=== PATIENT | male | born 1990 | race Hispanic/Latino ===

== ENCOUNTER 2024-02-29 00:53 | Inpatient (IN) | payer SELFPAY ==
[~2024-02-29] VITALS: Ht 170.2 cm; Wt 72.6 kg
[2024-02-29 01:19] LABS: BASOPHILS # (AUTO) 0.09 K/uL (0.00-0.20); BASOPHILS % (AUTO) 1.6 % (0.0-5.0); EOSINOPHILS # (AUTO) 0.49 K/uL (0.00-0.70); EOSINOPHILS % (AUTO) 8.8 % (0.0-8.0); HEMATOCRIT 37.9 % (42-54); IMMATURE GRANULOCYTE ABSOLUTE 0.02 K/uL (0-1); LYMPHOCYTES # (AUTO) 0.5 K/uL (1.0-4.8); LYMPHOCYTES % (AUTO) 8.1 % (21.0-51.0); MEAN CORPUSCULAR VOLUME 90.9 fL (79-99); MONOCYTES # (AUTO) 0.5 K/uL (0.1-1.0); MONOCYTES % (AUTO) 9.1 % (3.0-13.0); PLATELET COUNT (AUTO) 210 K/uL (130-400); RED BLOOD CELL COUNT(AUTO) 4.17 MIL/uL (4.50-6.20); RED CELL DISTRIBUTION WIDTH 16.2 % (11.0-15.5); WHITE BLOOD COUNT (AUTO) 5.6 K/uL (4.8-10.8)
[2024-02-29] MEDS: morPHINE 2 MG SYG IVP ONE (01:26)
[2024-02-29] MEDS: ondanSETRON 4MG INJ IVP ONE (01:26)
[2024-02-29 01:32] LABS: CREATININE 0.7 mg/dL (0.5-1.3); POTASSIUM 4.3 mmol/L (3.5-5.1)
[2024-02-29 01:36] LABS: ALBUMIN 2.7 g/dL (3.5-5.0); BILIRUBIN,TOTAL 1.2 mg/dL (0.2-1.0); TOTAL PROTEIN, SERUM 6.6 g/dL (6.0-8.3)
[2024-02-29] MEDS: furoSEMIDE 40MG VIAL IV ONE (01:55)
[2024-02-29 02:40] LABS: APPEARANCE,URINE CLEAR (CLEAR); BILIRUBIN,URINE NEGATIVE (NEGATIVE); COLOR,URINE YELLOW (YELLOW); GLUCOSE, URINE (UA) NEGATIVE (NEGATIVE); KETONES,URINE NEGATIVE (NEGATIVE); LEUKOCYTE ESTERASE ,URINE NEGATIVE Leu/uL (NEGATIVE); NITRATE,URINE NEGATIVE (NEGATIVE); OCCULT BLOOD,URINE NEGATIVE (NEGATIVE); PROTEIN,URINE 10 mg/dL (NEGATIVE)
[2024-02-29 02:48] LABS: ADD UA MICROSCOPIC YES
[2024-02-29 02:49] LABS: BACTERIA,URINE FEW /HPF (None Seen); MUCUS,URINE RARE LPF (None Seen); SQUAMOUS EPITHELIAL CELL,UR RARE /HPF (0-2)
[2024-02-29 02:51] LABS: INR 1.06 (0.85-1.15); PROTHROMBIN TIME 11.4 SEC (9.6-11.6)
[2024-02-29] MEDS ORDERED: acetaMINOPHEN 325 MG TAB PO PRN ×2 (04:30)
[2024-02-29] MEDS ORDERED: ondanSETRON 4MG INJ IV PRN (04:30)
[2024-02-29 05:12] VITALS: BP 105/80; PULSE 106; RESP 18; TEMP 97.2; O2SAT 97
[2024-02-29] MEDS ORDERED: furoSEMIDE 20MG VIAL IV SCH (09:00)
[2024-02-29] MEDS ORDERED: FAMOTIDINE 20MG VIAL IV SCH (09:00)
== END 2024-02-29 06:30 | disposition left against medical advice (07) | DRG 434 ==
LOC: EDH 00:53 → EDHIP 00:54 → UNDOADMIN 04:10 → EDHIP 05:54 → 4AH 05:54 → UNDODISIN 06:30
PROVIDERS: ADMIT Internal Medicine; ATTEND Internal Medicine
DX: K74.60 Unspecified cirrhosis of liver (principal); D64.9 Anemia, unspecified; I50.9 Heart failure, unspecified; Z53.29 Procedure and treatment not carried out because of patient's decision for other reasons; I11.0 Hypertensive heart disease with heart failure; I25.10 Atherosclerotic heart disease of native coronary artery without angina pectoris; Z95.1 Presence of aortocoronary bypass graft
CPT/HCPCS: 36415; 71045; 80053; 81001; 82140; 82150; 83690; 83880; 84145; 85025; 85610; 87086; 87186; 93005; 96374; 96375; G0378; J1940; J2270; J2405